=== PATIENT | female | born 1990 | race American Indian/Alaskan Native ===

== ENCOUNTER 2018-09-06 13:15 | Emergency (ER) | payer MEDICAID ==
[2018-09-06 13:38] VITALS: BP 137/80
--- NOTE | 2018-09-06 13:42 | Emergency Department Report ---
Blank Doc - Documentation Documentation: C/O of boil on tailbone that is sore and painful to sit down. Time 1 week This initial assessment diagnostic orders/clinical plan/treatment (s) is/Are subject change based on patient's health status, clinical progression and re- assessment by fellow clinical providers in the ED. Further treatment and work-up at subsequent clinical providers discretion. Patient/guardians urged not to elope from their condition may be serious if not clinically assessed and managed. Initial order include:
[2018-09-06] MEDS ORDERED: TYLENOL PO ONE (14:32)
--- NOTE | 2018-09-06 14:35 | Emergency Department Report ---
Abscess Boil HPI - HPI Chief Complaint: Skin/Abscess/Foreign Body Stated Complaint: BOIL ON TAILBONE/PAIN Time Seen by Provider: 09/06/18 13:40 Location: Sacral/Pilonidal History: Yes Fever, Yes Pain, No Purulent Drainage, No Numbness, No Foreign Body, No Previous History, No Insect Bite HPI: This is a 27-year-old female who presents to ED at approximately 18 weeks gestation complaining of tailbone pain and swelling for the past 3-4 days. Patient states that she's had this before about a year ago. Home Medications: Previous Rx's Medication Instructions Recorded Last Taken Type Acetaminophen [Tylenol 8 Hour] 650 mg PO TID #30 tablet.er 09/06/18 Unknown Rx Sulfamethoxazole/Trimethoprim 1 each PO BID #20 tablet 09/06/18 Unknown Rx [Bactrim DS TAB] Allergies/Adverse Reactions: Allergies Allergy/AdvReac Type Severity Reaction Status Date / Time No Known Allergies Allergy Verified 09/06/18 14:46 ED Review of Systems ROS: Stated complaint: BOIL ON TAILBONE/PAIN Other details as noted in HPI Comment: All other systems reviewed and negative ED Past Medical Hx - Past Medical History Previous Medical History?: No - Surgical History Past Surgical History?: No - Social History Smoking Status: Never Smoker Substance Use Type: None - Medications Home Medications: Home Medications Medication Instructions Recorded Confirmed Last Taken Type Acetaminophen [Tylenol 8 Hour] 650 mg PO TID #30 tablet.er 09/06/18 Unknown Rx Sulfamethoxazole/Trimethoprim 1 each PO BID #20 tablet 09/06/18 Unknown Rx [Bactrim DS TAB] ED Abscess Boil Physical Exam - Exam General: Vital signs noted. No distress. Alert and acting appropriately. Front/Back of Body, Lg (Color): 1 - Peritonitis, tender, mass palpated fluctuant Exam: Yes Tenderness, Yes Fluctuance, Yes Normal Neurologic Exam, Yes Normal Circulation, No Surrounding Cellulites/Erythema, No Lymphangitis, No Crepitation, No Heart Murmur I & D Note - I & D Note I & D Note: Patient positioned appropriately, 15cc lidocaine with/without epinephrine was used as a local anesthetic. #11 blade scalpal used for single incision. Additional local anesthetic injected into surrounding viable tissue p rior to blunt dissection of loculated adhesions. Copius drainage of pus (culture obtained). Wound packed with iodoform gauze. Procedure tolerated without complications. Wound dressed with sterile 4x4 guaze and paper tape. Pt tolerated procedure well. ED Course Vital Signs 09/06/18 13:36 Temperature 99.7 F H Pulse Rate 122 H Respiratory 18 Rate Blood Pressure 137/80 O2 Sat by Pulse 97 Oximetry Critical care attestation.: If time is entered above; I have spent that time in minutes in the direct care of this critically ill patient, excluding procedure time. ED Medical Decision Making - Medical Decision Making 27-year-old female presents with pilonidal abscess. Abscesses drained. No prior complications, see I D note discussed with patient to return in 3 days for packing removal and wound check. Vital signs are normal patient is in acute distress ED Disposition Clinical Impression: Pilonidal abscess Disposition: - TO HOME OR SELFCARE Is pt being admited?: No Does the pt Need Aspirin: No Condition: Stable Instructions: Abscess (ED), Abscess Incision and Drainage (ED) Additional Instructions: Make sure to follow up with the primary care physician as discussed. Take all your medications as you've been prescribed. Return in 3 days for wound check and packing removal If you have any worsening symptoms or develop new symptoms please return to ED immediately. Prescriptions: Acetaminophen [Tylenol 8 Hour] 650 mg PO TID #30 tablet.er Sulfamethoxazole/Trimethoprim [Bactrim DS TAB] 1 each PO BID #20 tablet Referrals: ASHLEY COLES MD [Primary Care Provider] - 3-5 Days Forms: Work/School Release Form(ED)
[2018-09-06] MEDS ORDERED: XYLOCAINE 1% 20 mL INFILTRATI NR (14:45)
== END 2018-09-06 16:36 | disposition home or self-care (01) ==
LOC: ED 13:15
DX: O26.893 Other specified pregnancy related conditions, third trimester (principal); L05.01 Pilonidal cyst with abscess; Z3A.18 18 weeks gestation of pregnancy

== ENCOUNTER 2018-09-09 13:27 | Emergency (ER) | payer MEDICAID ==
--- NOTE | 2018-09-09 13:47 | Emergency Department Report ---
Chief Complaint: Skin/Abscess/Foreign Body Stated Complaint: FOLLOW UP/PACKING REMOVAL Time Seen by Provider: 09/09/18 13:42 - HPI History of Present Illness: Pt had I&D at the gluteal cleft on 09/06 presents today for packing removal pt is 17 weeks no fever still having brown/bloody drainage pt has been taking bactrim as prescribed VSS, afebrile MSE complete MSE screening note: Focused history and physical exam performed. Due to findings the following was ordered: ED Disposition for MSE Condition: Stable
--- NOTE | 2018-09-09 14:23 | Emergency Department Report ---
Abscess Boil HPI - HPI Chief Complaint: Skin/Abscess/Foreign Body Stated Complaint: FOLLOW UP/PACKING REMOVAL Time Seen by Provider: 09/09/18 13:42 Duration: 4 Days Location: Sacral/Pilonidal Severity: None History: Yes Purulent Drainage, No Fever, No Pain HPI: Pt is a 27 yo female who presents to the ED for packing removal. She had a piliondal cyst and had an I&D on 09/06/18. The patient has had some mild brown/bloody discharge. She denies any fever. She states she was presribed bactrim and has been taking it as prescribed. She is currently 17 weeks . Her antibiotic will be changed to keflex due to bactrim being a category D in . Home Medications: Previous Rx's Medication Instructions Recorded Last Taken Type Acetaminophen [Tylenol 8 Hour] 650 mg PO TID #30 tablet.er 09/06/18 Unknown Rx Cephalexin [Keflex] 500 mg PO TID 7 Days #21 capsule 09/09/18 Unknown Rx Allergies/Adverse Reactions: Allergies Allergy/AdvReac Type Severity Reaction Status Date / Time No Known Allergies Allergy Verified 09/06/18 14:46 ED Review of Systems ROS: Stated complaint: FOLLOW UP/PACKING REMOVAL Other details as noted in HPI Comment: All other systems reviewed and negative ED Past Medical Hx - Social History Smoking Status: Former Smoker Substance Use Type: Alcohol, Prescribed - Medications Home Medications: Home Medications Medication Instructions Recorded Confirmed Last Taken Type Acetaminophen [Tylenol 8 Hour] 650 mg PO TID #30 tablet.er 09/06/18 Unknown Rx Cephalexin [Keflex] 500 mg PO TID 7 Days #21 capsule 09/09/18 Unknown Rx ED Abscess Boil Physical Exam - Exam General: Vital signs noted. No distress. Alert and acting appropriately. Exam: small amount of brown/purulent drainage on packing once removed, no erythema, no induration, no fluctuance is able to be expressed from the pilonidal cyst present in gluteal cleft ED Course Vital Signs 09/09/18 13:43 Temperature 98.2 F Pulse Rate 96 H Respiratory 18 Rate Blood Pressure 128/79 O2 Sat by Pulse 97 Oximetry Critical care attestation.: If time is entered above; I have spent that time in minutes in the direct care of this critically ill patient, excluding procedure time. ED Medical Decision Making - Medical Decision Making Pt was previously prescribed bactrim s/p I&D on 09/06/18. Will change bactrim to keflex due to patient being 17 weeks . Advised pt on side effects on medication. Advised to follow up with PCP. Pt has an appointment tomorrow with OB doctor. Advised to return if new or worsening sx arise. ED Disposition Clinical Impression: Pilonidal cyst, Encounter for abscess packing removal, Pilonidal abscess, and not yet delivered in second trimester Disposition: DC-01 TO HOME OR SELFCARE Is pt being admited?: No Does the pt Need Aspirin: No Condition: Stable Instructions: Abscess Incision and Drainage (ED) Prescriptions: Cephalexin [Keflex] 500 mg PO TID 7 Days #21 capsule
== END 2018-09-09 14:53 | disposition home or self-care (01) ==
LOC: ED 13:27
CPT/HCPCS: 99282